=== PATIENT | female | born 1935 | race Caucasian/White ===

== ENCOUNTER 2017-08-08 12:41 | Emergency (ER) | payer MEDICARE, BC ==
--- NOTE | 2017-08-08 13:06 | EDM.PDOC ---
ED HPI GENERAL MEDICAL PROBLEM - General Chief Complaint: General Stated Complaint: Dizziness Time Seen by Provider: 08/08/17 13:00 Source of Information: Reports: Patient, Old Records ([facility] chart/EMR) History Limitations: Reports: No Limitations - History of Present Illness INITIAL COMMENTS - FREE TEXT/NARRATIVE: Patient was brought to the emergency room via private automobile by her for evaluation of some nonspecific bilateral ear "fullness" associated with some intermittent dizziness with brief symptoms at about 7 AM this morning with additional worsening symptoms and recurrence prior to lunch today at about 12: 05 PM. The patient denies any chest pain/pressure, heart flutter,orthostasis, orthopnea, diaphoresis, paresthesias, recent decreased exercise tolerance, or any other anginal-type symptoms. She does have known history of coronary artery disease as below. No recent history of abdominal pain, heartburn, nausea, diarrhea, melena, gross hematochezia, or any food intolerance, including fatty foods, etc.. The patient also denies any recent fever, wheezing, dyspnea, etc. with stable chronic cough secondary to her pulmonary fibrosis. The patient did have some physical therapy to her neck yesterday. No history of recent headaches , visual changes, diplopia, change in mental status, or other change in neurological status. She denies any specific pain or discomfort. She denies any recent medication changes, medication noncompliance, etc. Onset: Today, Sudden Onset Date: 08/08/17 Onset Time: 12:05 Duration: Getting Worse, Intermittent Location: Reports: Other (As above no pain) Quality: Reports: Same as Previous Episode Improves with: Reports: None Worsens with: Reports: None Context: Reports: Other (As above) Associated Symptoms: Reports: Cough (Stable chronic). 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 (see below) (None) - Related Data Allergies Allergy/AdvReac Type Severity Reaction Status Date / Time atorvastatin calcium Allergy Elevated Verified 08/08/17 13:04 [From Lipitor] CPK azithromycin [From Zithromax] Allergy Hives Verified 08/08/17 13:04 cefdinir [Cefdinir] Allergy Hives Verified 08/08/17 13:04 celecoxib [From Celebrex] Allergy GI Verified 08/08/17 13:04 Intolerence ciprofloxacin [From Cipro] Allergy GI Upset Verified 08/08/17 13:04 doxycycline Allergy Hives Verified 08/08/17 13:04 morphine Allergy Itching Verified 08/08/17 13:04 Penicillins Allergy Hives Verified 08/08/17 13:04 rivaroxaban [From Xarelto] Allergy Nausea Verified 08/08/17 13:04 sulfamethoxazole Allergy Hives Verified 08/08/17 13:04 [From Bactrim] trimethoprim [From Bactrim] Allergy Hives Verified 08/08/17 13:04 Home Meds: Home Meds Aspirin [Halfprin] 81 mg PO QAM 12/17/13 [History] Esomeprazole Magnesium [Nexium 24Hr] 20 mg PO QAM 09/03/14 [History] Fexofenadine HCl [Emili Allergy] 60 mg PO BEDTIME 08/01/15 [History] Warfarin [Coumadin] 5 mg PO SUTUTHSA 08/01/15 [History] diphenhydrAMINE [Benadryl] 25 mg PO QID PRN 08/01/15 [History] Acetaminophen [Tylenol Extra Strength] 500 mg PO Q4HR PRN 08/30/15 [History] 0.9 % Sodium Chloride [Normal Saline Flush] 3 ml IH Q4H PRN #100 disp.syrin [Rx] Warfarin [Coumadin] 2.5 mg PO MOWEFR 10/25/15 [History] Lisinopril 2.5 mg PO BEDTIME 04/06/16 [History] Lisinopril 5 mg PO DAILY 04/06/16 [History] Past Medical History HEENT History: Reports: Allergic Rhinitis, Cataract, Impaired Vision, Other ( See Below). Denies: Glaucoma, Hard of Hearing, Macular Degeneration, Retinal Detachment Other HEENT History: Bifocals Cardiovascular History: Reports: Afib, Arrhythmia, CAD, Heart Failure, Heart Murmur, High Cholesterol, Hypertension, [place], Pacemaker, PTCA, PVD, Stents, Other (See Below). Denies: Aneurysm, Blood Clots/VTE/DVT, Syncope Other Cardiovascular History: Cardiomegaly with no known previous history of CHF , possible diastolic dysfunction, atrial fibrillation diagnosed in July 2015 with briefly successful electrocardioversion on 09/28/15 with subsequent pacemaker placement for both her atrial fibrillation and bradycardia, PACs, PVCs , first degree AV block, bigeminy, complete right bundle branch block, coronary artery disease with WY on 02/08/05 and subsequent PTCA/stent, mild bilateral carotid occlusive disease by carotid artery Doppler studies on 08/07/16, severe tricuspid valve insufficiency with moderate pulmonary valve insufficiency and additional additional mild mitral valve insufficiency and and aortic valve insufficiency with ejection fraction of 65-70% at time of echocardiogram on 08/07, Phan's disease as below Respiratory History: Reports: Bronchitis, Recurrent, COPD, Intubation, Previous , Pneumonia, Recurrent, Pneumothorax, Pulmonary Fibrosis, Other (See Below). Denies: Asthma, PE, Sleep Apnea, TB Other Respiratory History: BRONCHIECTESIS Gastrointestinal History: Reports: Cholelithiasis, Diverticulosis, Gastritis, GERD, Hemorrhoids, Hiatal Hernia, Other (See Below). Denies: Celiac Disease, Chronic Constipation, Chronic Diarrhea, Fecal Incontinence, Hepatitis, Helicobacter Pylori, Inflammatory Bowel Disease, Irritable Bowel Syndrome, Jaundice, Pancreatitis, PUD Other Gastrointestinal History: History of cholecystectomy as below Genitourinary History: Reports: Urinary Incontinence, UTI, Recurrent. 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 Denies: Endometriosis : 4 Para: 3 LMP (Approximate): Other (See Below) Other OB/BYN History: Surgical menopause, SAB at 3 months gestation with D&C as below, otherwise Full term without complications during pregnancies or deliveries Musculoskeletal History: Reports: Arthritis, Back Pain, Chronic, Fracture, Fibromyalgia, Neck Pain, Chronic, Osteoarthritis, Osteoporosis, Other (See Below ). Denies: Gout, RA, SLE Other Musculoskeletal History: Moderate mostly lumbar Scoliosis, Raynaud's disease, right fifth metatarsal fracture on 11/03/68 Neurological History: Reports: Neuropathy, Peripheral. Denies: Alzheimers Disease, Concussion, CVA, Headaches, Chronic, Head Trauma, Migraines, MS, Parkinson's, Seizure, TIA Psychiatric History: Reports: Anxiety, Depression. Denies: Abuse, Victim of, ADD, ADHD, Addiction, Emotional Problems, Psych Hospitalization(s), PTSD, Suicide Attempt, Suicidal Ideation Endocrine/Metabolic History: Reports: Osteoporosis. Denies: Diabetes, Type I, Diabetes, Type II, Hypothyroidism, IDDM Hematologic History: Reports: Anemia, B12 Deficiency, Blood Transfusion(s), Iron Deficiency, Other (See Below) Other Hematologic History: Blood transfusion in February 2005 after bleeding from femoral artery hemorrhage after stent placement Immunologic History: Reports: None. Denies: AIDS, HIV, SLE Oncologic (Cancer) History: Reports: None. Denies: Basal Cell Carcinoma, Breast , Cervix, Hodgkin's Lymphoma, Leukemia, Lymphoma, Malignant Melanoma, Non- Hodgkin's Lymphoma, Squamous Cell Carcinoma Dermatologic History: Reports: Angiodema, Urticaria. Denies: Eczema, Psoriasis Other Dermatologic History: Refractory recurrent idiopathic angioedema and urticaria - Infectious Disease History Infectious Disease History: Reports: Chicken Pox. Denies: C-Difficile, Helicobacter Pylori, Measles, Meningitis, Mononucleosis, MRSA, Mumps, Pertussis (Whooping Cough), Rheumatic Fever, Rubella, Scarlet Fever, TB, VRE - Past Surgical History Head Surgeries/Procedures: Reports: None HEENT Surgical History: Reports: Cataract Surgery, Oral Surgery, Other (See Below). Denies: Eye Surgery, Laser Surgery, LASIK, Naso-Sinus Surgery, Tonsillectomy Other HEENT Surgeries/Procedures: Cataract surgery of the right eye on 11/27/12 and the left eye on 12/18/12, Gill teeth extraction 1 in the right upper region at about age 32 Cardiovascular Surgical History: Reports: Coronary Artery Stent, Pacer, Percutaneous Transluminal Angioplasty, Other (See Below). Denies: Aneurysm, Cardiac Ablation, Carotid Endarterectomy, Carotid Stents, Coronary Artery Bypass , Varicose Other Cardiovascular Surgeries/Procedures: PTCA/stent 1 in February 2005, pacemaker on 10/05/15 Respiratory Surgical History: Reports: None, Other (See Below). Denies: Lung Biopsies, Thoracentesis GI Surgical History: Reports: Cholecystectomy, Colonoscopy, EGD, Other (See Below). Denies: Appendectomy, Hernia, Abdominal, Hernia, Inguinal, Hernia Repair/Other, Polypectomy Other GI Surgeries/Procedures: Laparoscopic cholecystectomy on 12/18/06, last colonoscopy with additional concomitant EGD on 09/06/11 month last EGD on 07/22/14 Female Surgical History: Reports: Breast Biopsy, D&C, Hysterectomy, Salpingo- Oophorectomy, Other (See Below) Other Female Surgeries/Procedures: 2 previous breast biopsies in 2003 for benign disease and apparent removal of benign cyst from the right breast at age 21, D&C secondary to SAB as above, complete hysterectomy including bilateral salpingo-oophorectomy at age 55 in 1990 secondary to dysfunctional uterine bleeding Endocrine Surgical History: Reports: None. Denies: Thyroid Biopsy Neurological Surgical History: Reports: None. Denies: C-Spine, Discectomy, Laminectomy, Lumbar Spine, Sacral Spine, Spinal Fusion, Vertebroplasty Musculoskeletal Surgical History: Reports: Arthroscopic Knee, Arthroscopic Procedure, Joint Replacement, Knee Replacement, Other (See Below). Denies: Carpal Tunnel, Ganglion Cyst, ORIF, Shoulder Surgery Other Musculoskeletal Surgeries/Procedures:: Left Medial meniscal tear repair in March 2009, left TKA on 09/05/10 Oncologic Surgical History: Reports: Biopsy of Breast, Other (See Below) Other Oncologic Surgeries/Procedures: Breast biopsies as above for benign disease Dermatological Surgical History: Reports: None - Past Imaging History Past Imaging History: Reports: Angiography (Heart catheterization at time of W[place] in February 2005), Barium Enema (September 2013 after incomplete colonoscopy), Cardiac Echo (Last cardiac echocardiogram on 08/07/16 with findings as above), Carotid US (Carotid artery Doppler studies on 08/07/16 with only mild bilateral carotid occlusive disease), CAT Scan (CT of the brain on 08/07/16, CT of the abdomen and pelvis with contrast on 05/22/17 with previous evaluation on 09/29/13 ), DEXA Scan (03/12/11), MRI (Left knee on 06/28/10), Ultrasound (Soft tissue ultrasound of the right shoulder and coccyx region on 11/10/15, thyroid ultrasound on 11/27/11), Other (See Below) Social & Family History - Family History HEENT: Reports: None. Denies: Allergic Rhinitis, Glaucoma, Hearing Impairment, Macular Degeneration, Retinal Detachment Cardiac: Reports: Arrhythmia, CAD, Hypertension, [place], Pacemaker, Syncope, Other ( See Below). Denies: Aneurysm, Blood Clots/VTE/DVT, Heart Failure, High Cholesterol, PVD/COD Other Cardiac Family History: Sister with 2 vessel CABG at age 43, sister and brother with hypertension, father with fatal W[place] at age 65 with mother with [place] at age 57 however she from an unknown cause at age 79, son with symptomatic bradycardia including secondary syncope at age 56 requiring pacemaker placement Respiratory: Reports: None. Denies: Asthma, COPD, Interstitial Lung Disease, PE , Pneumothorax, TB GI: Reports: Pancreatitis, Other (See Below). Denies: Celiac Disease, Colon Polyps, Diverticulosis, Inflammatory Bowel Disease, Irritable Bowel Syndrome, Jaundice Other GI Family History: Despite previous medical records patient denies her sister having pancreatitis in the past, although she did have lupus : Reports: None. Denies: Dialysis, Renal Calculus, Renal Disease/ Insufficiency OBGYN: Reports: None. Denies: Endometriosis, Recurrent Spontaneous Musculoskeletal: Reports: Osteoarthritis, Osteoporosis, SLE, Other (See Below) Other Musculoskeletal Family History: Strong family history on both maternal and paternal sides for osteoarthritis and osteoporosis with her sister having lupus Neurological: Reports: CVA, Seizure, Other (See Below). Denies: Alzheimers Disease, Cerebral Aneurysms, Dementia, Migraines, Parkinson's, TIA Other Neurological Family History: Son with symptomatic bradycardia/syncope as above including additional head injury at age 56 as above with secondary skull fracture and cerebral bleed with possible that the additional seizure activity Psychiatric: Reports: None. Denies: Abuse, Victim of, ADD, ADHD, Anxiety, Depression, Psych Hospitalization(s), PTSD, Suicide Attempt Endocrine/Metabolic: Reports: Diabetes, type II, IDDM, Osteoporosis, Other (See Below). Denies: Diabetes, Type I, Hypothyroidism Other Endocrine/Metabolic Family History: Strong family history of osteoporosis above, sister with IDDM Hematologic: Reports: SLE, Other (See Below). Denies: Anemia, B12 Deficiency, Transfusion Reaction Other Hematologic Family History: Sister with SLE Immunologic: Reports: SLE, Other (See Below). Denies: AIDS, HIV Other Immunologic Family History: Sister with lupus as above Dermatologic: Reports: Psoriasis, Other (See Below). Denies: Angiodema, Eczema , Urticaria Other Dermatologic Family History: Father with psoriasis Oncologic: Reports: Metastatic, Renal, Other (See Below). Denies: Breast, Cervix, Colon, Hodgkin's Lymphoma, Leukemia, Lymphoma, Non-Hodgkin's Lymphoma, Ovarian, Skin, Uterine Other Oncologic Family History: Brother with fatal metastatic renal cancer at age 68 - Tobacco Use Smoking Status *Q: Never Smoker Tobacco Use Within Last Twelve Months: No Used Tobacco, but Quit: No Smoking Cessation Information Provided To Patient: No Second Hand Smoke Exposure: No Second Hand Smoke Education Provided: No - Caffeine Use Caffeine Use: Reports: Soda (One soda per week). Denies: Coffee (Decaffeinated one cup per day), Energy Drinks, Tea - Alcohol Use Alcohol Use History: No Days Per Week of Alcohol Use: 0 (No previous DWIs, problems with alcohol abuse, etc.) Number of Drinks Per Day: 0 Total Drinks Per Week: 0 Alcohol Use in Last Twelve Months: No - Recreational Drug Use Recreational Drug Use: No Drug Use in Last 12 Months: No Recreational Drug Type: Denies: Amphetamines (Speed), Cocaine, Heroin, Inhalants (Glues, Solvents, Aerosols), LSD (Acid), Marijuana/Hashish, Methamphetamine, Morphine Recreational Drug Last Use: One cup of coffee per day, occasional soda - Living Situation & Occupation Living situation: Reports: ([birth year], 3 children), with Spouse, with Family () Occupation: Other ([employer]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 ED EXAM, GENERAL - Physical Exam Exam: See Below Exam Limited By: No Limitations General Appearance: Alert, WD/WN, No Apparent Distress, Anxious (Mild) Eye Exam: Bilateral Eye: Normal Fundi, Normal Inspection (No nystagmus including with head movement and provocation), PERRL Ears: Normal External Exam, Normal Canal, Normal TMs, Hearing Loss (Mild Bilateral presbycusis with no hearing aide therapy) Nose: Normal Inspection, Normal Mucosa, No Blood Throat/Mouth: Normal Inspection, Normal Lips, Normal Teeth, Normal Gums, Normal Oropharynx, Normal Voice, No Airway Compromise. No: Dysphagia, Perioral Cyanosis Head: Atraumatic, Normocephalic. No: Facial Swelling, Facial Tenderness, Sinus Tenderness Neck: Supple, Non-Tender, Full Range of Motion, Carotid Bruit (Mild bilateral carotid bruits versus transmitted heart sounds). No: Lymphadenopathy (L), Lymphadenopathy (R), Thyromegaly Respiratory/Chest: No Respiratory Distress, No Accessory Muscle Use, Chest Non- Tender, Rales (Mild bilateral basilar rales). No: Wheezing, Stridor, Pleural Rub, Retractions Cardiovascular: Normal Peripheral Pulses, No Edema, No Gallop, No JVD, No Rub, Systolic Murmur (Mild 1/6 BRADY at the aortic and mitral valves), Irregularly Irregular. No: Diastolic Murmur, Gallop/S3, Gallop/S4, Friction Rub Peripheral Pulses: 2+: Radial (L), Radial (R), Dorsalis Pedis (L), Dorsalis Pedis (R) GI/Abdominal: Normal Bowel Sounds, Soft, Non-Tender, No Organomegaly, No Distention, No Abnormal Bruit, No Mass. No: Guarding (Female) Exam: Deferred Rectal (Female) Exam: Deferred Back Exam: Full Range of Motion, Other (Moderate scoliosis particularly in the lumbar region). No: CVA Tenderness (L), CVA Tenderness (R), Muscle Spasm Extremities: Normal Inspection, Normal Range of Motion, Non-Tender, No Pedal Edema, Normal Capillary Refill. No: Kathy's Sign Neurological: Alert, Oriented, CN II-XII Intact, Normal Cognition, Normal Gait, Normal Reflexes (Negative Babinski's, finger to nose, and pronator rotation tests. No evidence of facial paresis, tongue deviation, orthostasis, etc.. Excellent reverse thought processes.), No Motor/Sensory Deficits Psychiatric: Anxious (Mild). No: Depressed Mood Skin Exam: Warm, Dry, Intact, Normal Color, No Rash. No: Diaphoretic, Wound/ Incision Lymphatic: No Adenopathy EKG INTERPRETATION EKG Date: 08/08/17 Time: 13:09 Rhythm: A-Fib (With escape PVCs) P-Wave: Variable Comparison: Change From Previous EKG (Escape PVCs from previous EKG on 08/07/16, which was 100% paced) Course - Vital Signs Last Recorded V/S: Last Vital Signs Temp 36.8 C 08/08/17 12:41 Pulse 62 08/08/17 14:13 Resp 21 H 08/08/17 14:13 BP 161/56 H 08/08/17 14:13 Pulse Ox 100 08/08/17 14:13 Vital Signs - 24 hr 08/08/17 08/08/17 08/08/17 12:41 12:58 13:15 Temperature [ 36.8 C Temporal] Pulse, 62 65 Peripheral [ Right Brachial] Respiratory 18 16 Rate Blood Pressure 158/65 H 157/59 H 165/59 H [Right Upper Arm] O2 Sat by Pulse 100 94 L Oximetry O2 Sat by Pulse Oximetry [ Nasal Cannula] 08/08/17 08/08/17 08/08/17 13:45 13:57 14:13 Temperature [ Temporal] Pulse, 66 62 Peripheral [ Right Brachial] Respiratory 22 H 21 H Rate Blood Pressure 165/55 H 161/56 H [Right Upper Arm] O2 Sat by Pulse 98 100 Oximetry O2 Sat by Pulse 100 Oximetry [ Nasal Cannula] 08/08/17 08/08/17 14:24 14:40 Temperature [ Temporal] Pulse, 62 63 Peripheral [ Right Brachial] Respiratory 24 H 25 H Rate Blood Pressure 142/55 H 145/61 H [Right Upper Arm] O2 Sat by Pulse 100 100 Oximetry O2 Sat by Pulse Oximetry [ Nasal Cannula] - Orders/Labs/Meds Orders: Active Orders 24 hr Category Date Time Status Cardiac Monitoring [RC] . DIRECTED Care 08/08/17 13:06 Active EKG Documentation Completion [RC] ASDIRECTED Care 08/08/17 13:06 Active Oxygen Therapy, ED [RC] CONTINUOUS Care 08/08/17 13:57 Active Peripheral IV Care [RC] . DIRECTED Care 08/08/17 13:58 Active Pulse Oximetry [RC] CONTINUOUS Care 08/08/17 13:06 Active Up With Assistance [RC] PFP Care 08/08/17 13:06 Active Vital Signs [RC] PFP Care 08/08/17 13:06 Active Nothing per Oral Now Diet [DIET] Diet 08/08/17 Breakfast Active Chest 1V Frontal [CR] Stat Exams 08/08/17 13:06 Taken Sodium Chloride 0.9% [Saline Flush] Med 08/08/17 13:58 Active 10 ml FLUSH ASDIRECTED PRN Obtain Past Medical Record [OM.PC] Urgent Oth 08/08/17 13:06 Active Peripheral IV Insertion Adult [OM.PC] Stat Oth 08/08/17 13:58 Ordered Resuscitation Status Stat Resus Stat 08/08/17 13:06 Ordered Medication Orders Sodium Chloride (Saline Flush) 10 ml FLUSH ASDIRECTED PRN PRN Reason: Keep Vein Open Last Admin: 10/05/17 14:11 Dose: 10 ml Labs: Laboratory Tests 08/08/17 08/08/17 08/08/17 Range/Units 13:19 13:19 13:19 WBC 6.4 (4.0-10.2) K/uL RBC 5.31 H (3.77-5.09) M/uL Hgb 12.0 (11.7-15.5) g/dL Hct 37.5 (34.0-46.0) % MCV 70.6 L D (84.0-98.0) fL MCH 22.6 L (28.2-33.3) pg MCHC 32.0 (31.7-36.0) g/dL RDW 18.5 H (11.2-14.1) % Plt Count 293 (150-350) K/uL Neut % (Auto) 79.1 (45.0-80.0) % Lymph % (Auto) 11.4 (10.0-50.0) % Hart % (Auto) 7.8 (2.0-14.0) % Eos % (Auto) 1.4 (0.0-5.0) % Baso % (Auto) 0.3 (0.0-2.0) % Neut # (Auto) 5.06 (1.40-7.00) K/uL Lymph # (Auto) 0.73 (0.50-3.50) K/uL Hart # (Auto) 0.50 (0.00-1.00) K/uL Eos # (Auto) 0.09 (0.00-0.50) K/uL Baso # (Auto) 0.02 (0.00-0.20) K/uL PT 22.7 H (9.8-11.7) SEC INR 2.0 APTT 32.9 H (23.5-30.0) SEC D-Dimer, Quantitative < 100 (0-400) ng/mL Sodium (136-145) mmol/L Potassium (3.5-5.1) mmol/L Chloride (98-107) mmol/L Carbon Dioxide (21.0-32.0) mmol/L BUN (7-18) mg/dL Creatinine (0.51-1.17) mg/dL Est Cr Clr Drug Dosing mL/min Estimated GFR (MDRD) mL/min Glucose (74-106) mg/dL Calcium (8.5-10.1) mg/dL Total Bilirubin (0.2-1.0) mg/dL AST (15-37) U/L ALT (12-78) U/L Alkaline Phosphatase (46-116) IU/L Creatine Kinase (26-308) U/L Creatine Kinase Index (0.0-2.5) % CK-MB (CK-2) (0.00-3.60) ng/mL Troponin I (0.000-0.056) ng/mL NT-Pro-B Natriuret Pep (0-125) pg/mL Total Protein (6.4-8.2) g/dL Albumin (3.4-5.0) g/dL TSH, Ultra Sensitive (0.358-3.740) mIU/mL 08/08/17 Range/Units 13:19 WBC (4.0-10.2) K/uL RBC (3.77-5.09) M/uL Hgb (11.7-15.5) g/dL Hct (34.0-46.0) % MCV (84.0-98.0) fL MCH (28.2-33.3) pg MCHC (31.7-36.0) g/dL RDW (11.2-14.1) % Plt Count (150-350) K/uL Neut % (Auto) (45.0-80.0) % Lymph % (Auto) (10.0-50.0) % Hart % (Auto) (2.0-14.0) % Eos % (Auto) (0.0-5.0) % Baso % (Auto) (0.0-2.0) % Neut # (Auto) (1.40-7.00) K/uL Lymph # (Auto) (0.50-3.50) K/uL Hart # (Auto) (0.00-1.00) K/uL Eos # (Auto) (0.00-0.50) K/uL Baso # (Auto) (0.00-0.20) K/uL PT (9.8-11.7) SEC INR APTT (23.5-30.0) SEC D-Dimer, Quantitative (0-400) ng/mL Sodium 135 L (136-145) mmol/L Potassium 4.1 (3.5-5.1) mmol/L Chloride 101 (98-107) mmol/L Carbon Dioxide 27.8 (21.0-32.0) mmol/L BUN 14 (7-18) mg/dL Creatinine 0.72 (0.51-1.17) mg/dL Est Cr Clr Drug Dosing 52.17 mL/min Estimated GFR (MDRD) > 60 mL/min Glucose 92 (74-106) mg/dL Calcium 8.7 (8.5-10.1) mg/dL Total Bilirubin 0.4 (0.2-1.0) mg/dL AST 19 (15-37) U/L ALT 17 (12-78) U/L Alkaline Phosphatase 111 (46-116) IU/L Creatine Kinase 37 (26-308) U/L Creatine Kinase Index 4.9 H (0.0-2.5) % CK-MB (CK-2) 1.80 (0.00-3.60) ng/mL Troponin I 0.070 H* (0.000-0.056) ng/mL NT-Pro-B Natriuret Pep 2908 H (0-125) pg/mL Total Protein 7.6 (6.4-8.2) g/dL Albumin 3.2 L (3.4-5.0) g/dL TSH, Ultra Sensitive 1.069 (0.358-3.740) mIU/mL Meds: Medications Generic Name Dose Route Start Last Admin Trade Name Freq PRN Reason Stop Dose Admin Sodium Chloride 10 ml 08/08/17 13:58 08/08/17 14:11 Saline Flush FLUSH 10 ml ASDIRECTED PRN Administration Keep Vein Open Discontinued Medications Generic Name Dose Route Start Last Admin Trade Name Freq PRN Reason Stop Dose Admin Furosemide 60 mg 08/08/17 13:57 08/08/17 14:08 Lasix IVPUSH 08/08/17 13:58 60 mg NOW ONE Administration - Radiology Interpretation Free Text/Narrative:: 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 Occasional independent rhythm and escape PVCs noted with baseline atrial fibrillation Chest x-ray, portable, shows evidence of moderate pulmonary fibrotic and emphysematous changes with additional moderate cardiomegaly and stable chronic mild left pleural effusion with probable concomitant mild CHF and pulmonary hypertension. Moderate osteoarthritic and osteoporotic changes also noted with moderate scoliosis particularly in the lumbar spine. Secondary to pulmonary changes as above difficult to assess pulmonary infiltrates. Pacemaker noted with leads in appropriate position Departure - Departure Time of Disposition: 14:55 Disposition: DC/Tfer to Acute Hospital 02 Condition: Good Clinical Impression: Pulmonary fibrosis, Peptic reflux disease, Hyponatremia, Hypoalbuminemia, Vitamin B12 deficiency, Multifocal PVCs, Microcytosis Osteoarthritis Qualifiers: Osteoarthritis location: multiple joints Osteoarthritis type: primary Qualified Code(s): M15.0 - Primary generalized (osteo)arthritis Hypertension Qualifiers: Hypertension type: essential hypertension Qualified Code(s): I10 - Essential ( primary) hypertension CHF (congestive heart failure) Qualifiers: Congestive heart failure type: combined Congestive heart failure chronicity: acute Qualified Code(s): I50.41 - Acute combined systolic (congestive) and diastolic (congestive) heart failure Atrial fibrillation Qualifiers: Atrial fibrillation type: persistent Qualified Code(s): I48.1 - Persistent atrial fibrillation Coronary artery disease Qualifiers: Coronary Disease-Associated Artery/Lesion type: habematolel artery [place] vs. transplanted heart: [place] heart Associated angina: without angina Qualified Code(s): I25.10 - Atherosclerotic heart disease of [place] coronary artery without angina pectoris - Discharge Information Referrals: Pallavi Kapadia [employer]ENT [Primary Care Provider] - Forms: ED Department Discharge, Interfacility Transfer EMTALA - Problem List & Annotations (1) CHF (congestive heart failure) SNOMED Code(s): 10044330 Code(s): I50.9 - HEART FAILURE, UNSPECIFIED Status: Acute Priority: Medium Current Visit: Yes Onset Date: 08/08/17 Annotation/Comment:: Initial diagnosis of CHF in 08/06/16 with apparent additional history of diastolic dysfunction and current pacemaker therapy. Significantly elevated BNP today with only mild CHF by chest x-ray. IV Lasix 60 mg given IV in the emergency room prior to discharge. Secondary to pacemaker difficult to assess changes in EKG with distant history of coronary artery disease and PTCA/stent as above. No chest pain or anginal type symptoms with chest pain protocol not initiated in the emergency room. Telephone consultation at 14:[address] Ding, hospitalist at [facility] in [place], who does accept the patient for direct admission, with no further treatment recommendations given. Ambulance transfer with animal technician accompaniment. Blood pressure improved with otherwise stable vitals at time of transfer record. Note artifactually elevated cardiac index with additional elevated troponin I and mild hyponatremia likely secondary to her CHF with normal renal function at this time. Patient is apparently scheduled for pacemaker check on 08/14 with recommended earlier evaluation possibly during the upcoming hospitalization secondary to somewhat increased independent rhythm during our emergency room evaluation Qualifiers: Congestive heart failure type: combined Congestive heart failure chronicity : acute Qualified Code(s): I50.41 - Acute combined systolic (congestive) and diastolic (congestive) heart failure (2) Coronary artery disease SNOMED Code(s): 25045264 Code(s): I25.10 - ATHSCL HEART DISEASE OF [place] CORONARY ARTERY W/O ANG PCTRS Status: Chronic Priority: Medium Current Visit: Yes Annotation/ Comment:: As above Qualifiers: Coronary Disease-Associated Artery/Lesion type: habemat[place] artery [place] vs. transplanted heart: [place] heart Associated angina: without angina Qualified Code(s): I25.10 - Atherosclerotic heart disease of [place] coronary artery without angina pectoris (3) Hyponatremia SNOMED Code(s): 19064647 Code(s): E87.1 - HYPO-OSMOLALITY AND HYPONATREMIA Status: Acute Priority : Medium Current Visit: Yes Onset Date: 08/30/15 Annotation/Comment:: Mild likely secondary to CHF as above. (4) Atrial fibrillation SNOMED Code(s): 60842481 Code(s): I48.91 - UNSPECIFIED ATRIAL FIBRILLATION Status: Chronic Priority: High Current Visit: Yes Onset Date: 09/06/15 Annotation/Comment: : Note current pacemaker and Coumadin therapy with therapeutic INR of 2.0 today. Note previous unsuccessful long-term electrocardioversion as above Qualifiers: Atrial fibrillation type: persistent Qualified Code(s): I48.1 - Persistent atrial fibrillation (5) Hypertension SNOMED Code(s): 97085994 Code(s): I10 - ESSENTIAL (PRIMARY) HYPERTENSION Status: Chronic Priority : Medium Current Visit: Yes Annotation/Comment:: Blood pressure somewhat elevated in the emergency room initially with improvement prior to transfer. Continue to observe closely especially in light of her IV Lasix therapy. Qualifiers: Hypertension type: essential hypertension Qualified Code(s): I10 - Essential (primary) hypertension (6) Osteoarthritis SNOMED Code(s): 117114757 Code(s): M19.90 - UNSPECIFIED OSTEOARTHRITIS, UNSPECIFIED SITE Status: Chronic Priority: Medium Current Visit: Yes Annotation/Comment:: Stable by patient history Qualifiers: Osteoarthritis location: multiple joints Osteoarthritis type: primary Qualified Code(s): M15.0 - Primary generalized (osteo)arthritis (7) Peptic reflux disease SNOMED Code(s): 80247691 Code(s): K21.9 - GASTRO-ESOPHAGEAL REFLUX DISEASE WITHOUT ESOPHAGITIS Status: Chronic Priority: Medium Current Visit: Yes Annotation/Comment:: Stable by patient history. (8) Pulmonary fibrosis SNOMED Code(s): 28461568 Code(s): J84.10 - PULMONARY FIBROSIS, UNSPECIFIED Status: Chronic Priority: Medium Current Visit: Yes Annotation/Comment:: Stable by patient history with no recent fever, bronchitic-type symptoms, etc. Chest x-ray difficult to assess secondary to her baseline moderate pulmonary fibrosis as above (9) Iron deficiency SNOMED Code(s): 91340751 Code(s): E61.1 - IRON DEFICIENCY Status: Chronic Priority: Medium Current Visit: No Onset Date: 08/30/15 Annotation/Comment:: History of iron deficiency with progressive microcytosis since last hospitalization in this facility in August 2016. Consider repeat iron studies with no iron supplementation at this time. 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 Consider reevaluation (12) Hypoalbuminemia SNOMED Code(s): 686634431 Code(s): E88.09 - OTH DISORDERS OF PLASMA-PROTEIN METABOLISM, NEC Status: Chronic Priority: Medium Current Visit: Yes Annotation/Comment:: Consider high-protein Glucerna supplements as snacks with close follow-up by her regular providers - Problem List Review Problem List Initiated/Reviewed/Updated: Yes - My Orders Last 24 Hours: My Active Orders 08/08/17 13:06 Cardiac Monitoring [RC] . DIRECTED EKG Documentation Completion [RC] ASDIRECTED Pulse Oximetry [RC] CONTINUOUS Up With Assistance [RC] PFP Vital Signs [RC] PFP Chest 1V Frontal [CR] Stat Obtain Past Medical Record [OM.PC] Urgent Resuscitation Status Stat 08/08/17 13:57 Oxygen Therapy, ED [RC] CONTINUOUS 08/08/17 13:58 Peripheral IV Care [RC] . DIRECTED Sodium Chloride 0.9% [Saline Flush] 10 ml FLUSH ASDIRECTED PRN Peripheral IV Insertion Adult [OM.PC] Stat 08/08/17 Breakfast Nothing per Oral Now Diet [DIET] - Assessment/Plan Last 24 Hours: My Active Orders 08/08/17 13:06 Cardiac Monitoring [RC] . DIRECTED EKG Documentation Completion [RC] ASDIRECTED Pulse Oximetry [RC] CONTINUOUS Up With Assistance [RC] PFP Vital Signs [RC] PFP Chest 1V Frontal [CR] Stat Obtain Past Medical Record [OM.PC] Urgent Resuscitation Status Stat 08/08/17 13:57 Oxygen Therapy, ED [RC] CONTINUOUS 08/08/17 13:58 Peripheral IV Care [RC] . DIRECTED Sodium Chloride 0.9% [Saline Flush] 10 ml FLUSH ASDIRECTED PRN Peripheral IV Insertion Adult [OM.PC] Stat 08/08/17 Breakfast Nothing per Oral Now Diet [DIET] Assessment:: As above Plan: As above. Extensive precautions were given to the patient and her , who are in agreement with the treatment plan. Ambulance transfer with animal technician accompaniment
[2017-08-08 13:47] LABS: CHLORIDE,CL 101 mmol/L (98-107); SODIUM,NA 135 mmol/L (136-145)
[2017-08-08] MEDS ORDERED: Furosemide 40 MG/4 ML VIAL IVPUSH ONE (13:57)
[2017-08-08] MEDS ORDERED: Sodium Chloride 0.9% 10 ML Syringe FLUSH PRN (13:58)
[2017-08-08 15:10] VITALS: BP 145/61
== END 2017-08-08 14:55 ==
LOC: LL.ED 12:41 → SUPCPDRO 12:41 → LL.ED 14:55
DX: J84.10 Pulmonary fibrosis, unspecified (principal); K21.9 Gastro-esophageal reflux disease without esophagitis; E87.1 Hypo-osmolality and hyponatremia; E88.09 Other disorders of plasma-protein metabolism, not elsewhere classified; E53.8 Deficiency of other specified B group vitamins; I49.3 Ventricular premature depolarization; D50.9 Iron deficiency anemia, unspecified; M15.0 Primary generalized (osteo)arthritis; I11.0 Hypertensive heart disease with heart failure; I50.41 Acute combined systolic (congestive) and diastolic (congestive) heart failure; I48.1 Persistent atrial fibrillation; I25.10 Atherosclerotic heart disease of native coronary artery without angina pectoris; Z88.8 Allergy status to other drugs, medicaments and biological substances; Z88.5 Allergy status to narcotic agent; Z88.0 Allergy status to penicillin; Z88.1 Allergy status to other antibiotic agents; Z79.82 Long term (current) use of aspirin; Z79.01 Long term (current) use of anticoagulants; Z79.899 Other long term (current) drug therapy
CPT/HCPCS: 36415; 71010; 80053; 82550; 82553; 83880; 84443; 84484; 85025; 85379; 85610; 85730; 93005; 96374; 99285; J1940; J7050; 93010

== ENCOUNTER 2017-12-31 05:32 | Emergency (ER) | payer MEDICARE, BC ==
--- NOTE | 2017-12-31 06:00 | EDM.PDOC ---
ED HPI GENERAL MEDICAL PROBLEM - General Chief Complaint: General Stated Complaint: dizziness, slow heart rate Time Seen by Provider: 12/31/17 05:50 Source of Information: Reports: Patient, Family (), Old Records ([facility] chart/EMR) History Limitations: Reports: No Limitations - History of Present Illness INITIAL COMMENTS - FREE TEXT/NARRATIVE: The patient was brought to the emergency room via private automobile by her for evaluation of persistent moderate bradycardia, which started when she woke up this morning at about 3 AM. Her pulses have been in the low to mid 40s since that time with some secondary fatigue and weakness. The patient did have a pacemaker check by telephone through [place] about one month ago. The patient denies any chest pain/pressure, heart flutter, orthostasis, orthopnea, diaphoresis, paresthesias, recent decreased exercise tolerance, or any other anginal-type symptoms. No recent history of abdominal pain, heartburn, nausea, diarrhea, melena, gross hematochezia, or any food intolerance, including fatty foods, etc.. The patient also denies any recent fever, cough, wheezing, dyspnea , etc.. She has not taken her morning medications to this point. She denies any pain or discomfort. She also denies any medication noncompliance. Onset: Today, Sudden Onset Date: 12/31/17 Onset Time: 03:00 Duration: Constant Location: Reports: Other (No pain) Improves with: Reports: None Worsens with: Reports: None Context: Reports: Other (As above) Associated Symptoms: Reports: Weakness. Denies: Confusion, Chest Pain, Cough, Diaphoresis, Fever/Chills, Headaches, Loss of Appetite, Malaise, Nausea/Vomiting , Seizure, Shortness of Breath, Syncope Treatments SNAG GRINDER: Reports: Other (see below) (None) - Related Data Allergies Allergy/AdvReac Type Severity Reaction Status Date / Time atorvastatin calcium Allergy Elevated Verified 12/31/17 05:47 [From Lipitor] CPK azithromycin [From Zithromax] Allergy Hives Verified 12/31/17 05:47 cefdinir [Cefdinir] Allergy Hives Verified 12/31/17 05:47 celecoxib [From Celebrex] Allergy GI Verified 12/31/17 05:47 Intolerence ciprofloxacin [From Cipro] Allergy GI Upset Verified 12/31/17 05:47 doxycycline Allergy Hives Verified 12/31/17 05:47 morphine Allergy Itching Verified 12/31/17 05:47 Penicillins Allergy Hives Verified 12/31/17 05:47 rivaroxaban [From Xarelto] Allergy Nausea Verified 12/31/17 05:47 sulfamethoxazole Allergy Hives Verified 12/31/17 05:47 [From Bactrim] trimethoprim [From Bactrim] Allergy Hives Verified 12/31/17 05:47 Home Meds: Home Meds Aspirin [Halfprin] 81 mg PO QAM 12/17/13 [History] Esomeprazole Magnesium [Nexium 24Hr] 20 mg PO QAM 09/03/14 [History] Fexofenadine HCl [Emili Allergy] 60 mg PO BEDTIME 08/01/15 [History] Warfarin [Coumadin] 5 mg PO SUTUTHSA 08/01/15 [History] diphenhydrAMINE [Benadryl] 25 mg PO QID PRN 08/01/15 [History] Acetaminophen [Tylenol Extra Strength] 500 mg PO Q4HR PRN 08/30/15 [History] Warfarin [Coumadin] 2.5 mg PO MOWEFR 10/25/15 [History] Lisinopril 2.5 mg PO BEDTIME 04/06/16 [History] Lisinopril 5 mg PO DAILY 04/06/16 [History] Metoprolol Succinate [Toprol XL] 12.5 mg PO BEDTIME 12/31/17 [History] Past Medical History HEENT History: Reports: Allergic Rhinitis, Cataract, Impaired Vision, Other ( See Below). Denies: Glaucoma, Hard of Hearing, Macular Degeneration, Retinal Detachment Other HEENT History: Bifocals Cardiovascular History: Reports: Afib, Arrhythmia, CAD, Heart Failure, Heart Murmur, High Cholesterol, Hypertension, ID, Pacemaker, PTCA, PVD, Stents, Other (See Below). Denies: Aneurysm, Blood Clots/VTE/DVT, Syncope Other Cardiovascular History: Cardiomegaly with no known previous history of CHF , possible diastolic dysfunction, atrial fibrillation diagnosed in July 2015 with briefly successful electrocardioversion on 09/28/15 with subsequent pacemaker placement for both her atrial fibrillation and bradycardia, PACs, PVCs , first degree AV block, bigeminy, complete right bundle branch block, coronary artery disease with ID on 02/08/05 and subsequent PTCA/stent, mild bilateral carotid occlusive disease by carotid artery Doppler studies on 08/07/16, severe tricuspid valve insufficiency with moderate pulmonary valve insufficiency and additional additional mild mitral valve insufficiency and and aortic valve insufficiency with ejection fraction of 65-70% at time of echocardiogram on 08/07, Phan's disease as below Respiratory History: Reports: Bronchitis, Recurrent, COPD, Intubation, Previous , Pneumonia, Recurrent, Pneumothorax, Pulmonary Fibrosis, Other (See Below). Denies: Asthma, PE, Sleep Apnea, TB Other Respiratory History: BRONCHIECTESIS Gastrointestinal History: Reports: Cholelithiasis, Diverticulosis, Gastritis, GERD, Hemorrhoids, Hiatal Hernia, Other (See Below). Denies: Celiac Disease, Chronic Constipation, Chronic Diarrhea, Fecal Incontinence, Hepatitis, Helicobacter Pylori, Inflammatory Bowel Disease, Irritable Bowel Syndrome, Jaundice, Pancreatitis, PUD Other Gastrointestinal History: History of cholecystectomy as below Genitourinary History: Reports: Urinary Incontinence, UTI, Recurrent. Denies: Acute Renal Failure, Chronic Renal Insuffiency, Renal Calculus, Retention, Urinary, STD SUPERINTENDENT COMMUNICATIONS History: Reports: Dysfunctional Uterine Bleeding, , Spontaneous . Denies: Endometriosis : 4 Para: 3 LMP (Approximate): Menopausal Other OB/BYN History: Surgical menopause, SAB at 3 months gestation with D&C as below, otherwise Full term without complications during pregnancies or deliveries Musculoskeletal History: Reports: Arthritis, Back Pain, Chronic, Fracture, Fibromyalgia, Neck Pain, Chronic, Osteoarthritis, Osteoporosis, Other (See Below ). Denies: Gout, RA, SLE Other Musculoskeletal History: Moderate mostly lumbar Scoliosis, Raynaud's disease, right fifth metatarsal fracture on 11/03/68 Neurological History: Reports: Neuropathy, Peripheral. Denies: Alzheimers Disease, Concussion, CVA, Headaches, Chronic, Head Trauma, Migraines, MS, Parkinson's, Seizure, TIA Psychiatric History: Reports: Anxiety, Depression. Denies: Abuse, Victim of, ADD, ADHD, Addiction, Emotional Problems, Psych Hospitalization(s), PTSD, Suicide Attempt, Suicidal Ideation Endocrine/Metabolic History: Reports: Osteoporosis. Denies: Diabetes, Type I, Diabetes, Type II, Hypothyroidism, IDDM Hematologic History: Reports: Anemia, B12 Deficiency, Blood Transfusion(s), Iron Deficiency, Other (See Below) Other Hematologic History: Blood transfusion in February 2005 after bleeding from femoral artery hemorrhage after stent placement. Chronic microcytosis with history of both iron and vitamin B-12 deficiency Immunologic History: Reports: None. Denies: AIDS, HIV, SLE Oncologic (Cancer) History: Reports: None. Denies: Basal Cell Carcinoma, Breast , Cervix, Hodgkin's Lymphoma, Leukemia, Lymphoma, Malignant Melanoma, Non- Hodgkin's Lymphoma, Squamous Cell Carcinoma Dermatologic History: Reports: Angiodema, Urticaria. Denies: Eczema, Psoriasis Other Dermatologic History: Refractory recurrent idiopathic angioedema and urticaria - Infectious Disease History Infectious Disease History: Reports: Chicken Pox. Denies: C-Difficile, Helicobacter Pylori, Measles, Meningitis, Mononucleosis, MRSA, Mumps, Pertussis (Whooping Cough), Rheumatic Fever, Rubella, Scarlet Fever, TB, VRE - Past Surgical History Head Surgeries/Procedures: Reports: None HEENT Surgical History: Reports: Cataract Surgery, Oral Surgery, Other (See Below). Denies: Eye Surgery, Laser Surgery, LASIK, Naso-Sinus Surgery, Tonsillectomy Other HEENT Surgeries/Procedures: Cataract surgery of the right eye on 11/27/12 and the left eye on 12/18/12, [place] teeth extraction 1 in the right upper region at about age 32 Cardiovascular Surgical History: Reports: Coronary Artery Stent, Pacer, Percutaneous Transluminal Angioplasty, Other (See Below). Denies: Aneurysm, Cardiac Ablation, Carotid Endarterectomy, Carotid Stents, Coronary Artery Bypass , Varicose Other Cardiovascular Surgeries/Procedures: PTCA/stent 1 in February 2005, pacemaker on 10/05/15 Respiratory Surgical History: Reports: None, Other (See Below). Denies: Lung Biopsies, Thoracentesis GI Surgical History: Reports: Cholecystectomy, Colonoscopy, EGD, Other (See Below). Denies: Appendectomy, Hernia, Abdominal, Hernia, Inguinal, Hernia Repair/Other, Polypectomy Other GI Surgeries/Procedures: Laparoscopic cholecystectomy on 12/18/06, last colonoscopy with additional concomitant EGD on 09/06/11 month last EGD on 07/22/14 Female Surgical History: Reports: Breast Biopsy, D&C, Hysterectomy, Salpingo- Oophorectomy, Other (See Below). Denies: Tubal Ligation Other Female Surgeries/Procedures: 2 previous breast biopsies in 2003 for benign disease and apparent removal of benign cyst from the right breast at age 21, D&C secondary to SAB as above, complete hysterectomy including bilateral salpingo-oophorectomy at age 55 in 1990 secondary to dysfunctional uterine bleeding Endocrine Surgical History: Reports: None. Denies: Thyroid Biopsy Neurological Surgical History: Reports: None. Denies: C-Spine, Discectomy, Laminectomy, Lumbar Spine, Sacral Spine, Spinal Fusion, Vertebroplasty Musculoskeletal Surgical History: Reports: Arthroscopic Knee, Arthroscopic Procedure, Joint Replacement, Knee Replacement, Other (See Below). Denies: Carpal Tunnel, Ganglion Cyst, ORIF, Shoulder Surgery Other Musculoskeletal Surgeries/Procedures:: Left Medial meniscal tear repair in March 2009, left TKA on 09/05/10 Oncologic Surgical History: Reports: Biopsy of Breast, Other (See Below) Other Oncologic Surgeries/Procedures: Breast biopsies as above for benign disease Dermatological Surgical History: Reports: None - Past Imaging History Past Imaging History: Reports: Angiography (Heart catheterization at time of ID in February 2005), Barium Enema (September 2013 after incomplete colonoscopy), Cardiac Echo (Last cardiac echocardiogram in [facility] in August 2017 with results not available with previous echocardiogram on 08/07/16 with findings as above), Carotid US (Carotid artery Doppler studies on 08/07/16 with only mild bilateral carotid occlusive disease), CAT Scan (CT of the chest using cardiac protocol at [facility] in August 2017 with results not available. CT of the brain on 08/07/16, CT of the abdomen and pelvis with contrast on 05/22/17 with previous evaluation on 09/29/13), DEXA Scan (), MRI (Left knee on 06/28/10), PET (PET of the heart at [facility] in August 2017 with results not available), Stress Testing (Last Cardiolite stress test at [facility] in August 2017 with results not available), Ultrasound (Soft tissue ultrasound of the right shoulder and coccyx region on 11/10/15, thyroid ultrasound on 11/27/11) Social & Family History - Family History HEENT: Reports: None. Denies: Allergic Rhinitis, Glaucoma, Hearing Impairment, Macular Degeneration, Retinal Detachment Cardiac: Reports: Arrhythmia, CAD, Hypertension, ID, Pacemaker, Syncope, Other ( See Below). Denies: Aneurysm, Blood Clots/VTE/DVT, Heart Failure, High Cholesterol, PVD/COD Other Cardiac Family History: Sister with 2 vessel CABG at age 43, sister and brother with hypertension, father with fatal ID at age 65 with mother with ID at age 57 however she from an unknown cause at age 79, son with symptomatic bradycardia including secondary syncope at age 56 requiring pacemaker placement Respiratory: Reports: None. Denies: Asthma, COPD, Interstitial Lung Disease, PE , Pneumothorax, TB GI: Reports: Pancreatitis, Other (See Below). Denies: Celiac Disease, Colon Polyps, Diverticulosis, Inflammatory Bowel Disease, Irritable Bowel Syndrome, Jaundice Other GI Family History: Despite previous medical records patient denies her sister having pancreatitis in the past, although she did have lupus : Reports: None. Denies: Dialysis, Renal Calculus, Renal Disease/ Insufficiency OBGYN: Reports: None. Denies: Endometriosis, Recurrent Spontaneous Musculoskeletal: Reports: Osteoarthritis, Osteoporosis, SLE, Other (See Below) Other Musculoskeletal Family History: Strong family history on both maternal and paternal sides for osteoarthritis and osteoporosis with her sister having lupus Neurological: Reports: CVA, Seizure, Other (See Below). Denies: Alzheimers Disease, Cerebral Aneurysms, Dementia, Migraines, Parkinson's, TIA Other Neurological Family History: Son with symptomatic bradycardia/syncope as above including additional head injury at age 56 as above with secondary skull fracture and cerebral bleed with possible additional seizure activity Psychiatric: Reports: None. Denies: Abuse, Victim of, ADD, ADHD, Anxiety, Depression, Psych Hospitalization(s), PTSD, Suicide Attempt Endocrine/Metabolic: Reports: Diabetes, type II, IDDM, Osteoporosis, Other (See Below). Denies: Diabetes, Type I, Hypothyroidism Other Endocrine/Metabolic Family History: Strong family history of osteoporosis above, sister with IDDM Hematologic: Reports: SLE, Other (See Below). Denies: Anemia, B12 Deficiency, Transfusion Reaction Other Hematologic Family History: Sister with SLE Immunologic: Reports: SLE, Other (See Below). Denies: AIDS, HIV Other Immunologic Family History: Sister with lupus as above Dermatologic: Reports: Psoriasis, Other (See Below). Denies: Angiodema, Eczema , Urticaria Other Dermatologic Family History: Father with psoriasis Oncologic: Reports: Metastatic, Renal, Other (See Below). Denies: Breast, Cervix, Colon, Hodgkin's Lymphoma, Leukemia, Lymphoma, Non-Hodgkin's Lymphoma, Ovarian, Skin, Uterine Other Oncologic Family History: Brother with fatal metastatic renal cancer at age 68 - Tobacco Use Smoking Status *Q: Never Smoker Used Tobacco, but Quit: No Smoking Cessation Information Provided To Patient: No Second Hand Smoke Exposure: No Second Hand Smoke Education Provided: No - Caffeine Use Caffeine Use: Reports: Soda (One soda per week). Denies: Coffee (Decaffeinated one cup per day), Energy Drinks, Tea - Alcohol Use Alcohol Use History: No Days Per Week of Alcohol Use: 0 (No previous DWIs, problems with alcohol abuse, etc.) Number of Drinks Per Day: 0 Total Drinks Per Week: 0 - Recreational Drug Use Recreational Drug Use: No Drug Use in Last 12 Months: No Recreational Drug Type: Denies: Amphetamines (Speed), Cocaine, Heroin, Inhalants (Glues, Solvents, Aerosols), LSD (Acid), Marijuana/Hashish, Methamphetamine, Morphine, Oxycodone Recreational Drug Last Use: One cup of coffee per day, occasional soda - Living Situation & Occupation Living situation: Reports: ([birth year], 3 children), with Spouse, with Family () Occupation: Other ([employer]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 ED EXAM, GENERAL - Physical Exam Exam: See Below Exam Limited By: No Limitations General Appearance: Alert, WD/WN, No Apparent Distress Head: Atraumatic, Normocephalic Neck: Normal Inspection, Supple, Non-Tender, Full Range of Motion, Carotid Bruit (Mild bilateral). No: Lymphadenopathy (L), Lymphadenopathy (R), Thyromegaly Respiratory/Chest: No Respiratory Distress, No Accessory Muscle Use, Chest Non- Tender, Rales (Mild bilateral basilar), Rhonchi (Very occasional). No: Wheezing , Pleural Rub, Retractions Cardiovascular: Normal Peripheral Pulses, No Edema, No Gallop, No JVD, No Rub, Systolic Murmur (Mild 1/6 BRADY of the aortic and mitral valves), Irregularly Irregular. No: Gallop/S3, Gallop/S4, Friction Rub Peripheral Pulses: 2+: Radial (L), Radial (R), Dorsalis Pedis (L), Dorsalis Pedis (R) GI/Abdominal: Normal Bowel Sounds, Soft, Non-Tender, No Organomegaly, No Distention, No Abnormal Bruit, No Mass. No: Guarding (Female) Exam: Deferred Rectal (Female) Exam: Deferred Back Exam: Normal Inspection, Full Range of Motion. No: CVA Tenderness (L), CVA Tenderness (R), Muscle Spasm Extremities: Normal Inspection, Normal Range of Motion, Non-Tender, No Pedal Edema, Normal Capillary Refill. No: Kathy's Sign Neurological: Alert, Oriented, CN II-XII Intact, Normal Cognition, Normal Gait, Normal Reflexes (Negative Babinski's), No Motor/Sensory Deficits Psychiatric: Normal Affect, Normal Mood Skin Exam: Warm, Dry, Intact, Normal Color, No Rash. No: Diaphoretic, Lymphangitis Lymphatic: No Adenopathy EKG INTERPRETATION EKG Date: 12/31/17 Time: 06:26 Rhythm: Other (100% paced with resolution of previous breakthrough PVCs since last EKG on 08/18/17) Rate (Beats/Min): 62 Comparison: Change From Previous EKG (As above) EKG Interpretation Comments: 100% paced rhythm Course - Vital Signs Last Recorded V/S: Last Vital Signs Temp 36.2 C 12/31/17 05:38 Pulse 60 12/31/17 06:51 Resp 21 H 12/31/17 06:51 BP 149/54 H 12/31/17 06:51 Pulse Ox 100 12/31/17 06:51 Vital Signs - 24 hr 12/31/17 12/31/17 12/31/17 05:38 05:51 06:15 Temperature [ 36.2 C Oral] Pulse, 65 69 62 Peripheral [ Left Pulse Oximetry] Respiratory 18 16 18 Rate Blood Pressure 167/65 H 149/76 H 158/63 H [Right Upper Arm] O2 Sat by Pulse 96 98 95 Oximetry 12/31/17 12/31/17 12/31/17 06:30 06:35 06:51 Temperature [ Oral] Pulse, 61 64 60 Peripheral [ Left Pulse Oximetry] Respiratory 22 H 21 H 21 H Rate Blood Pressure 162/58 H 154/59 H 149/54 H [Right Upper Arm] O2 Sat by Pulse 93 L 100 Oximetry - Orders/Labs/Meds Orders: Active Orders 24 hr Category Date Time Status Cardiac Monitoring [RC] . DIRECTED Care 12/31/17 06:01 Active EKG Documentation Completion [RC] ASDIRECTED Care 12/31/17 06:01 Active Peripheral IV Care [RC] . DIRECTED Care 12/31/17 06:01 Active Pulse Oximetry [RC] CONTINUOUS Care 12/31/17 06:01 Active Up With Assistance [RC] PFP Care 12/31/17 06:01 Active Vital Signs [RC] PFP Care 12/31/17 06:01 Active Chest 1V Frontal [CR] Stat Exams 12/31/17 06:01 Taken Obtain Past Medical Record [OM.PC] Urgent Oth 12/31/17 06:01 Active Peripheral IV Insertion Adult [OM.PC] Stat Oth 12/31/17 06:01 Ordered Resuscitation Status Stat Resus Stat 12/31/17 06:01 Ordered Labs: Laboratory Tests 12/31/17 12/31/17 12/31/17 Range/Units 06:30 06:30 06:30 WBC 5.6 (4.0-10.2) K/uL RBC 5.57 H (3.77-5.09) M/uL Hgb 12.3 (11.7-15.5) g/dL Hct 39.2 (34.0-46.0) % MCV 70.4 L (84.0-98.0) fL MCH 22.1 L (28.2-33.3) pg MCHC 31.4 L (31.7-36.0) g/dL RDW 20.2 H (11.2-14.1) % Plt Count 263 (150-350) K/uL Neut % (Auto) 74.7 (45.0-80.0) % Lymph % (Auto) 14.7 (10.0-50.0) % Morton % (Auto) 8.3 (2.0-14.0) % Eos % (Auto) 1.8 (0.0-5.0) % Baso % (Auto) 0.5 (0.0-2.0) % Neut # (Auto) 4.15 (1.40-7.00) K/uL Lymph # (Auto) 0.82 (0.50-3.50) K/uL Morton # (Auto) 0.46 (0.00-1.00) K/uL Eos # (Auto) 0.10 (0.00-0.50) K/uL Baso # (Auto) 0.03 (0.00-0.20) K/uL PT 23.2 H (9.8-11.7) SEC INR 2.1 APTT 31.7 H (22.1-29.8) SEC D-Dimer, Quantitative 101 (0-400) ng/mL Sodium (136-145) mmol/L Potassium (3.5-5.1) mmol/L Chloride (98-107) mmol/L Carbon Dioxide (21.0-32.0) mmol/L BUN (7-18) mg/dL Creatinine (0.51-1.17) mg/dL Est Cr Clr Drug Dosing mL/min Estimated GFR (MDRD) mL/min Glucose (74-106) mg/dL Lactic Acid (0.4-2.0) mmol/L Uric Acid (2.6-7.2) mg/dL Calcium (8.5-10.1) mg/dL Magnesium (1.8-2.4) mg/dL Total Bilirubin (0.2-1.0) mg/dL AST (15-37) U/L ALT (12-78) U/L Alkaline Phosphatase (46-116) IU/L Creatine Kinase (26-308) U/L Creatine Kinase Index (0.0-2.5) % CK-MB (CK-2) (0.00-3.60) ng/mL Troponin I (0.000-0.056) ng/mL NT-Pro-B Natriuret Pep (0-125) pg/mL Total Protein (6.4-8.2) g/dL Albumin (3.4-5.0) g/dL TSH, Ultra Sensitive (0.358-3.740) mIU/mL 12/31/17 12/31/17 Range/Units 06:30 06:30 WBC (4.0-10.2) K/uL RBC (3.77-5.09) M/uL Hgb (11.7-15.5) g/dL Hct (34.0-46.0) % MCV (84.0-98.0) fL MCH (28.2-33.3) pg MCHC (31.7-36.0) g/dL RDW (11.2-14.1) % Plt Count (150-350) K/uL Neut % (Auto) (45.0-80.0) % Lymph % (Auto) (10.0-50.0) % Morton % (Auto) (2.0-14.0) % Eos % (Auto) (0.0-5.0) % Baso % (Auto) (0.0-2.0) % Neut # (Auto) (1.40-7.00) K/uL Lymph # (Auto) (0.50-3.50) K/uL Morton # (Auto) (0.00-1.00) K/uL Eos # (Auto) (0.00-0.50) K/uL Baso # (Auto) (0.00-0.20) K/uL PT (9.8-11.7) SEC INR APTT (22.1-29.8) SEC D-Dimer, Quantitative (0-400) ng/mL Sodium 136 (136-145) mmol/L Potassium 5.2 H (3.5-5.1) mmol/L Chloride 101 (98-107) mmol/L Carbon Dioxide 26.1 (21.0-32.0) mmol/L BUN 14 (7-18) mg/dL Creatinine 0.72 (0.51-1.17) mg/dL Est Cr Clr Drug Dosing 53.55 mL/min Estimated GFR (MDRD) > 60 mL/min Glucose 102 (74-106) mg/dL Lactic Acid 1.2 (0.4-2.0) mmol/L Uric Acid 3.2 (2.6-7.2) mg/dL Calcium 9.1 (8.5-10.1) mg/dL Magnesium 2.0 (1.8-2.4) mg/dL Total Bilirubin 0.5 (0.2-1.0) mg/dL AST 24 (15-37) U/L ALT 14 (12-78) U/L Alkaline Phosphatase 103 (46-116) IU/L Creatine Kinase 43 (26-308) U/L Creatine Kinase Index 4.4 H (0.0-2.5) % CK-MB (CK-2) 1.90 (0.00-3.60) ng/mL Troponin I 0.047 (0.000-0.056) ng/mL NT-Pro-B Natriuret Pep 3060 H (0-125) pg/mL Total Protein 8.1 (6.4-8.2) g/dL Albumin 3.2 L (3.4-5.0) g/dL TSH, Ultra Sensitive 2.423 (0.358-3.740) mIU/mL Meds: Medications Discontinued Medications Generic Name Dose Route Start Last Admin Trade Name Freq PRN Reason Stop Dose Admin Sodium Chloride 10 ml 12/31/17 06:01 Saline Flush FLUSH ASDIRECTED PRN Keep Vein Open - Radiology Interpretation Free Text/Narrative:: scale adjuster shows initial atrial fibrillation with heart rates in the 60s to 70s with occasional PVCs with subsequent nearly 100% paced demand pacemaker although occasional breakthrough episodes of independent rhythm with average heart paced rhythm in the 60s Chest x-ray, portable, shows moderate to severe pulmonary fibrotic and COPD changes with additional probable pulmonary hypertension and centralized CHF with mild left pleural effusion. Mild cardiomegaly noted with moderate aortic valve calcification. Pulmonary infiltrates difficult to assess secondary to her pulmonary fibrosis with no pneumothorax, etc. Departure - Departure Time of Disposition: 07:40 Disposition: Home, Self-Care 01 Condition: Good Clinical Impression: CHF (congestive heart failure), Bradycardia, Peptic reflux disease, Pulmonary fibrosis, Microcytosis, Hypoalbuminemia Coronary artery disease Qualifiers: Coronary Disease-Associated Artery/Lesion type: tor[place]inez artery [place] vs. transplanted heart: tor[place]inez heart Associated angina: without angina Qualified Code(s): I25.10 - Atherosclerotic heart disease of [place] coronary artery without angina pectoris Hypertension Qualifiers: Hypertension type: essential hypertension Qualified Code(s): I10 - Essential ( primary) hypertension Osteoarthritis Qualifiers: Osteoarthritis location: multiple joints Osteoarthritis type: primary Qualified Code(s): M15.0 - Primary generalized (osteo)arthritis - Discharge Information Instructions: Bradycardia, Adult Referrals: Sheets-Carolyn Balderas MD [Primary Care Provider] - Forms: ED Department Discharge Additional Instructions: 1. Followup with your regular provider in 7 days as directed for reevaluation and recommended recommended repeat chest x-ray, CBC, basic metabolic panel, BNP , CK, CK-MB, and troponin I. 2. Contact the pacemaker clinic at [facility] later this morning for repeat pacemaker check and/or pacemaker interrogation with any additional further follow-up per their recommendations - Problem List & Annotations (1) Bradycardia SNOMED Code(s): 97937486 Code(s): R00.1 - BRADYCARDIA, UNSPECIFIED Status: Acute Priority: High Onset Date: 12/31/17 Annotation/Comment:: Note bradycardia as above with additional previous history of atrial fibrillation, pacemaker placement, PACs, PVCs, first-degree AV block, bigeminy, and complete right bundle branch block. Pacemaker appears to be functioning well during emergency room evaluation, however she will repeat her pacemaker check through her providers at [facility] later today as per discharge instructions. INR is therapeutic. (2) CHF (congestive heart failure) SNOMED Code(s): 13911718 Code(s): I50.9 - HEART FAILURE, UNSPECIFIED Status: Acute Priority: Medium Onset Date: 08/08/17 Annotation/Comment:: Note pleural effusion in today's chest x-ray with significantly elevated BNP and patient currently not on diuretics. Mild high normal troponin I secondary to her CHF with otherwise normal cardiac enzymes with the exception of artifactually elevated CK index with low normal baseline CK. Recent extensive cardiac workup in August 2017 at [facility] as above. No current chest pain or anginal type symptoms. Initial diagnosis of CHF in 08/06/16 with apparent additional history of diastolic dysfunction and current pacemaker therapy. Secondary to pacemaker difficult to assess changes in EKG with distant history of coronary artery disease and PTCA/stent as above. No chest pain or anginal type symptoms with chest pain protocol not initiated in the emergency room as below. She states that her colorist formulator did not feel that she needed diuretic therapy. Various therapeutic options were discussed with no initiation of diuretics at this time , however close follow-up by her regular provider as per discharge instructions. Note artifactual hyperkalemia today secondary to mildly hemolysis in the blood specimen per laboratory. (3) Coronary artery disease SNOMED Code(s): 80700183 Code(s): I25.10 - ATHSCL HEART DISEASE OF [place] CORONARY ARTERY W/O ANG PCTRS Status: Chronic Priority: Medium Annotation/Comment:: No chest pain or anginal type symptoms. Chest pain protocol was not initiated in the emergency room secondary to absence of anginal complaints Qualifiers: Coronary Disease-Associated Artery/Lesion type: [place] artery [place] vs. transplanted heart: [place] heart Associated angina: without angina Qualified Code(s): I25.10 - Atherosclerotic heart disease of [place] coronary artery without angina pectoris (4) Hypertension SNOMED Code(s): 43371818 Code(s): I10 - ESSENTIAL (PRIMARY) HYPERTENSION Status: Chronic Priority : Medium Annotation/Comment:: Blood pressure somewhat elevated in the emergency room initially with improvement prior to discharge. Note that the patient has not yet taken her morning medications. Continue to observe closely by her regular providers. Qualifiers: Hypertension type: essential hypertension Qualified Code(s): I10 - Essential (primary) hypertension (5) Osteoarthritis SNOMED Code(s): 144839114 Code(s): M19.90 - UNSPECIFIED OSTEOARTHRITIS, UNSPECIFIED SITE Status: Chronic Priority: Medium Annotation/Comment:: Stable by patient history Qualifiers: Osteoarthritis location: multiple joints Osteoarthritis type: primary Qualified Code(s): M15.0 - Primary generalized (osteo)arthritis (6) Peptic reflux disease SNOMED Code(s): 86868137 Code(s): K21.9 - GASTRO-ESOPHAGEAL REFLUX DISEASE WITHOUT ESOPHAGITIS Status: Chronic Priority: Medium Annotation/Comment:: Stable by patient history. (7) Pulmonary fibrosis SNOMED Code(s): 79243847 Code(s): J84.10 - PULMONARY FIBROSIS, UNSPECIFIED Status: Chronic Priority: Medium Annotation/Comment:: Stable by patient history with no recent fever, bronchitic-type symptoms, etc. Chest x-ray difficult to assess secondary to her baseline moderate pulmonary fibrosis as above (8) Microcytosis Status: Acute Priority: Medium Onset Date: 08/06/16 Annotation/Comment:: Stable chronic microcytosis with no anemia. Note history of vitamin B-12 and iron deficiency (9) Hypoalbuminemia SNOMED Code(s): 267160639 Code(s): E88.09 - OTH DISORDERS OF PLASMA-PROTEIN METABOLISM, NEC Status: Chronic Priority: Medium Annotation/Comment:: Continue high-protein supplements twice a day as snacks with close follow-up by her regular providers - Problem List Review Problem List Initiated/Reviewed/Updated: Yes - My Orders Last 24 Hours: My Active Orders 12/31/17 06:01 Cardiac Monitoring [RC] . DIRECTED EKG Documentation Completion [RC] ASDIRECTED Peripheral IV Care [RC] . DIRECTED Pulse Oximetry [RC] CONTINUOUS Up With Assistance [RC] PFP Vital Signs [RC] PFP Chest 1V Frontal [CR] Stat Obtain Past Medical Record [OM.PC] Urgent Peripheral IV Insertion Adult [OM.PC] Stat Resuscitation Status Stat - Assessment/Plan Last 24 Hours: My Active Orders 12/31/17 06:01 Cardiac Monitoring [RC] . DIRECTED EKG Documentation Completion [RC] ASDIRECTED Peripheral IV Care [RC] . DIRECTED Pulse Oximetry [RC] CONTINUOUS Up With Assistance [RC] PFP Vital Signs [RC] PFP Chest 1V Frontal [CR] Stat Obtain Past Medical Record [OM.PC] Urgent Peripheral IV Insertion Adult [OM.PC] Stat Resuscitation Status Stat Assessment:: As above Plan: As above. Extensive precautions were given to the patient and her , who are in agreement with the treatment plan. See Patient Instructions for further treatment and plan.
[2017-12-31] MEDS ORDERED: Sodium Chloride 0.9% 10 ML Syringe FLUSH PRN (06:01)
[2017-12-31 06:52] VITALS: BP 149/54
[2017-12-31 07:00] LABS: CHLORIDE,CL 101 mmol/L (98-107); SODIUM,NA 136 mmol/L (136-145)
== END 2017-12-31 07:40 | disposition home or self-care (01) ==
LOC: LL.ED 05:32
DX: I11.0 Hypertensive heart disease with heart failure (principal); I50.9 Heart failure, unspecified; I25.10 Atherosclerotic heart disease of native coronary artery without angina pectoris; J84.10 Pulmonary fibrosis, unspecified; E88.09 Other disorders of plasma-protein metabolism, not elsewhere classified; K21.9 Gastro-esophageal reflux disease without esophagitis; M15.0 Primary generalized (osteo)arthritis; Z88.1 Allergy status to other antibiotic agents; Z88.0 Allergy status to penicillin; Z88.5 Allergy status to narcotic agent; Z88.2 Allergy status to sulfonamides; Z88.8 Allergy status to other drugs, medicaments and biological substances
CPT/HCPCS: 36000; 36415; 71045; 80053; 82550; 82553; 83605; 83735; 83880; 84443; 84484; 84550; 85025; 85379; 85610; 85730; 93005; 93010; 99284; 99285